=== PATIENT | female | born 1995 | race Caucasian/White ===

== ENCOUNTER 2020-08-23 12:27 | Emergency (ER) | payer BC ==
[~2020-08-23 12:27] MED LIST: BACTRIM DS TAB1 EACH PO; KEFLEX500 MG PO
[2020-08-23] MEDS ORDERED: BACTRIM 400-801 EACH PO (13:50)
== END 2020-08-23 15:48 | disposition home or self-care (01) ==
LOC: ER1 12:27
DX: L02.415 Cutaneous abscess of right lower limb (principal)
CPT/HCPCS: 10060; 87070; 87205; 99283

== ENCOUNTER → 2021-11-24 | Outpatient (CLI) | payer BC ==
[~2021-11-24] MED LIST changes: +BACTRIM 400-801 EACH PO
== END ==
LOC: RAD 16:40
DX: M25.511 Pain in right shoulder (principal)
CPT/HCPCS: 73030